=== PATIENT | female | born 1950 | race Caucasian/White ===

== ENCOUNTER 2022-03-25 13:25 | Outpatient (CLI) | payer MEDICARE, SELFPAY ==
--- OUTSIDE RECORDS SUMMARY | 2022-03-25 13:27 | XMS_ITS | Clinical Summary ---
:1950 Author Organization [facility] [place] [address] Care Team Providers Name Role Phone Nelli Kerns MD Primary Care Provider [phone] Allergies Active Allergy Reactions Severity Noted Date Comments Yfdklzadz-Bekpxumcmew-Ffnlwis Vomiting 10/12/2007 Penicillins Rash 10/12/2007 Medications Medication Sig Dispensed Refills Start Date End Date Status ACTIVELLA 1 MG-0.5 Once daily 0 10/12/2007 Active MG TAB IBUPROFEN 200 MG 4 tabs as needed 0 10/12/2007 Active TAB every 4-6 hours BONIVA 150 MG take 1 tablet (150 0 10/12/2007 Active TABIndications: mg) by oral route Osteoporosis, once a month on the unspecified same date; Take with a full glass of water and remain in an upright position for at least 60 minutes. oxyCODONE-acetamino Take 1-2 tablets by 80 tablet 0 03/13/2011 Active phen, 5-325 mg, mouth every 4 hours (PERCOCET 5-325) if needed for Pain. 5-325 mg per tablet Max acetaminophen dose: 4000mg in 24 hrs. hydrOXYzine pamoate Take 1 capsule by 45 capsule 0 03/13/2011 Active (VISTARIL) 25 mg mouth. Take 1 tablet capsule with Percocet WalkerIndications: Walker with 1 Device 0 09/23/2020 Active Closed fracture of wheels,seat,hand ramus of right brakes,and basket pubis, initial for home use. encounter (HC) oxyCODONE-acetamino Take 0.5-1 tablets 10 tablet 0 09/23/2020 Active phen, 5-325 mg, by mouth every 6 (PERCOCET) 5-325 mg hours if needed for per Pain Max tabletIndications: acetaminophen dose: Closed fracture of 4000mg in 24 hrs. 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 Complication internal fixation device such as nail, pl ate, or christian, distal 03/13/2011 radius and ulna Osteoporosis, unspecified 08/23/2007 Overview: DXA scan: lowest T-score -2.6 lumbar spi ne Social History Tobacco Use Types Packs/Day Years Used Date Never Smoker Alcohol Use Standard Drinks/Week Comments Yes 0 (1 standard drink = 0.6 oz pure alcoho l) wine occasionally Sex Assigned at Date Recorded Not on file Obstetrics History Para Term AB IAB SAB Ectopic Multiple Living Live Births 2 2 2 Date Outcome GA Total Labor/2nd/3rd Weight Sex Delivery Anes PTL Kate A 1 A5 Name Clin Labor Para F Para M Last Filed Vital Signs Vital Sign Reading Time Taken Comments Blood Pressure 108/75 09/23/2020 3:12 PM MAJOR LEAGUE [employer]ASEBALL PLAYER Pulse 67 09/23/2020 3:12 PM MAJOR LEAG[employer] PLAYER Temperature 36.8 ??C (98.2 ??F) 09/23/2020 3:12 PM MAJOR LEAGUE B[employer] PLAYER Respiratory Rate 18 09/23/2020 3:12 PM MAJOR LEAGUE B[employer]BALL PLAYER Oxygen Saturation 100% 09/23/2020 3:12 PM MAJOR LEAGUE B[employer] PLAYER Inhaled Oxygen Concentration - - Weight 51.5 kg (113 lb 8 oz) 09/23/2020 3:12 PM MAJOR LEAGUE [employer]BALL PLAYER Height 162.6 cm (5' 4) 09/23/2020 3:12 PM MAJOR LEAGUE B[employer]BALL PLAYER Body Mass Index 19.48 09/23/2020 3:12 PM MAJOR LEAGUE B[employer]BALL PLAYER Plan of Treatment Health Maintenance Due Date Last Done Comments COVID-19 vaccine series (#1) 05/22/1951 Tdap 11/20/1962 Depression screening for age 12+ 1963 BMI (ht and wt on same day) for age 18+ 11/20/1969 Hepatitis C screening for age 18-79 11/20/1969 Tetanus booster 1971 Colonoscopy through age 75 11/20/1996 Lipids for age 45-75 11/20/1996 Zoster (shingles) series for age 50+ (1 of 2) 11/20/2001 Mammogram for age 45-75 08/23/2008 08/23/2007 DEXA/DXA scan for age 65+ 11/20/2016 08/23/2007 Pneumococcal series for age 65+ (1 - PCV) 11/20/2016 Influenza for age 65+ 03/26/2022 Medical Devices Implanted Type Area Sole Assessor Device Shelf Model / Identifier Expiration Serial / Date Lot Screw Locking 2.3x10mm Titnm - [id number] Left: [employer] [id number]# / Implanted: Qty: 1 on 03/13/2011 at [facility] / Explanted Type Area Sole Assessor Device Shelf Model / Identifier Expiration Serial / Date Lot K-Wire W/17mm Stop - [id number] Left: [place] [id number]# / Explanted: Qty: 1 on 03/13/2011 at [facility] / Results Not on filefrom Last 3 Months Insurance Payer Benefit Plan / Subscriber ID Effective Dates Phone Addre ss Type Group [facility] MR [id number] 2020-Present [address] [address] [place] [address] Advance Directives Latest Code Status on File Code Status Date Activated Date Inactivated Comments Full Code 03/13/2011 6:56 AM 03/13/2011 6:15 PM Care Teams Clinical Psychology Teacher Relationship Specialty Start Date End Date Nelli Kerns, PCP - General Family Practice 02/23 09/05
[2022-03-25 17:28] LABS: Albumin* 4.7 g/dL (3.3-5.0); Chloride* 103 mmol/L (96-114); Sodium* 139 mmol/L (135-149)
[2022-03-25 17:29] LABS: Potassium* 4.6 mmol/L (3.6-5.1)
[2022-03-25 17:30] LABS: Cholesterol* 262 mg/dL (90-199)
[2022-03-25 17:31] LABS: Alkaline Phosphatase* 70 U/L (40-150); Aspartate Amino Transferase* 27 U/L (12-35); Bilirubin Total* 0.8 mg/dL (0.1-1.5); Blood Urea Nitrogen* 23 mg/dL (7-30); Carbon Dioxide* 25 mmol/L (20-32); Creatinine* 0.8 mg/dL (0.5-1.5); Estimated Glomerular Filt Rate 79 ml/min; Glucose* 107 mg/dL (60-115); Total Protein* 8.1 g/dL (6.0-8.3)
[2022-03-25 17:32] LABS: Alanine Aminotransferase* 15 U/L (4-35); Calcium* 9.8 mg/dL (8.4-10.6); HDL Cholesterol* 76 mg/dL (>=50); LDL Cholesterol Calculated 167 mg/dL (<100); Triglycerides* 93 mg/dL (40-149)
[2022-03-25 17:48] LABS: Vitamin D 25 Hydroxy* 94 ng/mL (30-80)
== END 2022-03-25 13:26 | disposition home or self-care (01) ==
PROVIDERS: PCP Family Medicine; Visit Provider Family Medicine
DX: Z00.00 Encounter for general adult medical examination without abnormal findings (principal); M81.0 Age-related osteoporosis without current pathological fracture; E78.5 Hyperlipidemia, unspecified
CPT/HCPCS: 80053; 80061; 82306

== ENCOUNTER 2022-05-13 07:32 | Outpatient (CLI) | payer MEDICARE, SELFPAY ==
--- OUTSIDE RECORDS SUMMARY | 2022-05-13 07:34 | XMS_ITS | Clinical Summary ---
:1950 Author Organization [facility] [place] [address] Care Team Providers Name Role Phone Nelli Kerns MD Primary Care Provider [phone] Allergies Active Allergy Reactions Severity Noted Date Comments Bdjzgkkwl-Ymqfzjeikqf-Mnccjaa Vomiting 10/12/2007 Penicillins Rash 10/12/2007 Medications Medication [...] Comments Blood Pressure 108/75 09/23/2020 3:12 PM DIRECTOR PART Pulse 67 09/23/2020 3:12 PM DIRECTOR PART Temperature 36.8 ??C (98.2 ??F) 09/23/2020 3:12 PM DIRECTOR PART Respiratory Rate 18 09/23/2020 3:12 PM DIRECTOR PART Oxygen Saturation 100% 09/23/2020 3:12 PM DIRECTOR PART Inhaled Oxygen Concentration - - Weight 51.5 kg (113 lb 8 oz) 09/23/2020 3:12 PM DIRECTOR PART Height 162.6 cm (5' 4) 09/23/2020 3:12 PM DIRECTOR PART Body Mass Index 19.48 09/23/2020 3:12 PM DIRECTOR PART Plan of Treatment Health Maintenance Due Date [...] 65+ 03/26/2022 Medical Devices Implanted Type Area Blind Eyeletter Device Shelf Model / Identifier Expiration Serial / Date Lot Screw Locking 2.3x10mm Titnm - [id number] Left: [employer] [id number]# / Implanted: Qty: 1 on 03/13/2011 at [facility] / Explanted Type Area Blind Eyeletter Device Shelf Model / Identifier Expiration Serial / Date Lot K-Wire W/17mm Stop - [id number] Left: [place] [id number]# / Explanted: Qty: 1 on 03/13/2011 at [facility] / Results Not on filefrom Last 3 Months Insurance Payer Benefit Plan / Subscriber ID Effective Dates Phone Addre ss Type Group [facility] MR [id number] 2020-Present [address] [address] [place] [address] Advance Directives Latest Code Status on File Code Status Date Activated Date Inactivated Comments Full Code 03/13/2011 6:56 AM 03/13/2011 6:15 PM Care Teams Grain Roaster Relationship Specialty Start Date End Date Nelli Kerns, PCP - General Family Practice 02/23 09/05
--- NOTE | 2022-05-13 07:45 | CRLHL7_ITS ---
For Patients: As a result of the Century Cures Act, medical imaging exams and procedure reports are released immediately into your electronic medical record. You may view this report before your referring provider. If you have questions, please contact your health care provider. BILATERAL SCREENING MAMMOGRAM WITH COMPUTER-AIDED DETECTION AND TOMOSYNTHESIS TECHNIQUE: CC and MLO views were obtained. These mammographic images have been obtained using full-field digital technique. These mammographic images were interpreted with the benefit of computer-aided detection. Breast tomosynthesis was used in this interpretation. COMPARISON FILM: 03/06/21, 02/22/18. FINDINGS: The breasts are heterogeneously dense, which may obscure small masses. IMPRESSION: There is no radiographic evidence for malignancy. ASSESSMENT: BI-RADS Category 1: Negative RECOMMENDATION: Routine screening mammogram in 1 year. A lay language report of this examination will be provided to the patient. GODWIN MCDONOUGH M.D. Diagnostic Radiologist [email or web address] Transcribed: 3:[address]/Dictated by: Godwin Mcdonough MD @ 05/13/2022 9:13:00 AM (Electronically Signed)
== END 2022-05-13 07:33 | disposition home or self-care (01) ==
PROVIDERS: PCP Family Medicine; Visit Provider Family Medicine
DX: Z12.31 Encounter for screening mammogram for malignant neoplasm of breast (principal); R92.2 Inconclusive mammogram
CPT/HCPCS: 77063; 77067

== ENCOUNTER 2023-01-07 10:25 | Outpatient (CLI) | payer MEDICARE, SELFPAY | END 2023-01-07 10:26 | disposition home or self-care (01) | PROVIDERS: PCP Family Medicine; Visit Provider Family Medicine | DX: R53.83 Other fatigue (principal) | CPT/HCPCS: 80048; 82550; 84443; 85025; 85651 ==

== ENCOUNTER 2023-06-04 09:56 | Outpatient (CLI) | payer MEDICARE, SELFPAY | END 2023-06-04 09:57 | disposition home or self-care (01) | LOC: NFLDREF 06-05 12:45 | PROVIDERS: PCP Family Medicine; Referring Provider Family Medicine; Visit Provider Family Medicine | DX: Z01.419 Encounter for gynecological examination (general) (routine) without abnormal findings (principal); E78.5 Hyperlipidemia, unspecified; M81.0 Age-related osteoporosis without current pathological fracture | CPT/HCPCS: 80061; 82306 ==

== ENCOUNTER 2023-07-29 13:17 | Outpatient (CLI) | payer MEDICARE, SELFPAY ==
--- NOTE | 2023-07-29 13:30 | CRLHL7_ITS ---
For Patients: As a result of the Century Cures Act, medical imaging exams and procedure reports are released immediately into your electronic medical record. You may view this report before your referring provider. If you have questions, please contact your health care provider. DXA BONE MINERAL DENSITY STUDY Reason for exam: Osteoporosis. History of fracture in pelvis area. Current height (in): 64. Weight (lb): 106. Menopause age: 53. Ethnicity: White. 1. Have you had a previous hip or vertebral fracture? Yes. 2. Have you had any fractures during your adult life which did not result from significant trauma (e.g., auto accident)? Yes. 3. Did either of your parents have a hip fracture? No. 4. Do you smoke? No. 5. Have you ever taken Glucocorticoids? No. 6. Do you have rheumatoid arthritis? No. 7. Do you have secondary osteoporosis? No. 8. Do you drink 3 or more alcoholic drinks per day? No. 9. Are you being treated for osteoporosis? Yes. 10. Have you ever taken any of the following medications: Actonel, Evista, Fosamax, Miacalcin, Reclast, Boniva, Forteo, HRT (i.e., estrogen/hormone therapy), Protelos, Prolia, Vitamin D, Calcium, other ??? please specify. ANSWER: Yes, Fosamax (i.e. alendronate), vitamin D, Boniva (i.e. ibandronate), and calcium. 11. Do you have any of the following medical conditions: Anorexia or bulimia, asthma or emphysema, end stage renal disease, hyperparathyroidism, any seizure disorders, cancer, inflammatory bowel diseases, hysterectomy, other ??? please specify. ANSWER: No. 12. What was your maximum height (inches)? 64. 13. Do you perform weight bearing exercise regularly? No. 14. Do you regularly consume dairy products? No. 15. Do you drink caffeinated beverages? Yes. If female: 16. At what age did your period start? 18. 17. Are you premenopausal? No. 18. How many full-term pregnancies have you had? 2. 19. Have you ever missed your period for more than 6 months in a row (not including or menopause)? No. TECHNIQUE: Bone mineral density study was performed using the [employer]. FINDINGS: The results of the study expressed as bone mineral density (BMD) are as follows: Lumbar spine L1 to L4: BMD: 0.690 g/cm2. T-score: -3.2. Z-score: -1.0 Neck Left: BMD: 0.529 g/cm2. T-score: -2.9. Z-score: -1.0 Right: BMD: 0.536 g/cm2. T-score: -2.8. Z-score: -0.9 Total Left: BMD: 0.789 g/cm2. T-score: -1.3. Z-score: 0.3 Right: BMD: 0.801 g/cm2. T-score: -1.2. Z-score: 0.4 IMPRESSION: Osteoporosis. *Comparison exams done prior to 12/2019 were performed on different unit, [employer]. COMPARISON: Compared with scan of 03/06/2021, the bone mineral density has increased by 3.4 percent at the spine and increased by 4.7 percent at the hip. Godwin Schilling M.D. Diagnostic Radiologist [email or web address] TAN/[email or web address] briseno/Dictated by: Godwin Schilling MD @ 07/29/2023 3:07:00 PM (Electronically Signed)
== END 2023-07-29 13:18 | disposition home or self-care (01) ==
LOC: RAD 13:18
PROVIDERS: PCP Family Medicine; Visit Provider Family Medicine
DX: M81.0 Age-related osteoporosis without current pathological fracture (principal)
CPT/HCPCS: 77080

== ENCOUNTER 2023-09-20 11:11 | Outpatient (CLI) | payer MEDICARE, SELFPAY ==
--- NOTE | 2023-09-20 11:30 | MM_ITS ---
Patient: ANGELA LEON Facility:?[facility] Patient ID:?[id number] Site Patient ID:?[id number]. Site :?1950 Study:?XRay-Breast Bilateral 3D W/CAD-09/20/2023 11:36:38 AM Ordering Physician:Cecilia Final Report: BILATERAL SCREENING MAMMOGRAM WITH COMPUTER-AIDED DETECTION AND TOMOSYNTHESIS TECHNIQUE: CC and MLO views were obtained. These mammographic images have been obtained using full-field digital technique. These mammographic images were interpreted with the benefit of computer-aided detection. Breast Tomosynthesis was used in this interpretation. COMPARISON FILM: 05/13/22, 01/28/21, 02/22/18. FINDINGS: The breasts are heterogeneously dense, which may obscure small masses IMPRESSION: There is no radiographic evidence for malignancy. ASSESSMENT: BI-RADS Category 1: Negative RECOMMENDATION: Routine screening mammogram in 1 year. A lay language report of this examination will be provided to the patient. Godwin Schilling M.D. Diagnostic Radiologist [email or web address] TAN/tameka R/ Transcribed: 3:13 p.m. JOSE/Dictated by: Godwin Schilling MD @ 09/20/2023 12:59:00 PM Signed by:?Godwin Schilling MD @09/20/2023 3:42:02 PM (Electronic Signature)
== END 2023-09-20 11:12 | disposition home or self-care (01) ==
LOC: MAMMO 11:12
PROVIDERS: PCP Family Medicine; Visit Provider Family Medicine
DX: Z12.31 Encounter for screening mammogram for malignant neoplasm of breast (principal); R92.2 Inconclusive mammogram
CPT/HCPCS: 77063; 77067

== ENCOUNTER 2024-06-01 08:15 | Outpatient (CLI) | payer MEDICARE, SELFPAY ==
--- OUTSIDE RECORDS SUMMARY | 2024-06-05 11:52 | XMS_ITS | Clinical Summary ---
Author Organization [facility] Address [place], [place] [address] Care Team Providers Care Educational Institution President Name Role Phone Nelli Kerns MD Primary Care Provider Allergies Active Allergy Reactions Criticality Noted Date Comments Kounljadb-Umaefztrqok-Abrrgpn Vomiting 2007 Penicillins Rash 10/12/2007 Medications Medication Sig Dispensed Refills Start Date End Date Status ACTIVELLA 1 MG-0.5 MG TAB Once daily 0 10/12/2007 Active IBUPROFEN 200 MG TAB 4 tabs as needed every 4-6 hours 0 10/12/2007 Active BONIVA 150 MG TABIndications:Ost eoporosis, unspecified take 1 tablet (150 mg) by oral route once a month on the same date; Take with a full glass of water and remain in an upright position for at least 60 minutes. 0 10/12/2007 Active oxyCODONE-acetamin ophen, 5-325 mg, (PERCOCET 5-325) 5-325 mg per tablet Take 1-2 tablets by mouth every 4 hours if needed for Pain. Max acetaminophen dose: 4000mg in 24 hrs. 80 tablet 0 03/13/2011 Active hydrOXYzine pamoate (VISTARIL) 25 mg capsule Take 1 capsule by mouth. Take 1 tablet with Percocet 45 capsule 0 03/13/2011 Active WalkerIndications: Closed fracture of ramus of right pubis, initial encounter (HC) Walker with wheels,seat,hand brakes,and basket for home use. 1 Device 09/23/2020 Active oxyCODONE-acetamin ophen, 5-325 mg, (PERCOCET) 5-325 mg per tabletIndications: Closed fracture of ramus of right pubis, initial encounter (HC),Closed fracture of sacrum, unspecified portion of sacrum, initial encounter (HC) Take 0.5-1 tablets by mouth every 6 hours if needed for Pain Max acetaminophen dose: 4000mg in 24 hrs. 10 tablet 09/23/2020 Active Active Problems Problem Noted Date Diagnosed Date Non-union of fracture distal radius fracture Complication internal fixati on device such as nail, plate, or christian, distal radius and ulna 03/13/2011 Osteoporosis, unspecified 08/23/2007 Overview (09/15/2007): DXA scan: lowest T-score -2.6 lumbar spine Social History Tobacco Use Types Packs/Day Years Used Date Smoking Tobacco: Never Alcohol Use Standard Drinks/Week Comments Yes 0 (1 standard drink = 0.6 oz pur e alcohol) wine occasionally Sex and Gender Information Value Date Recorded Sex Assigned at Not on file Gender Identity Not on file Sexual Orientation Not on file Obstetrics History Para Term AB IAB SAB Ectopic Multiple Livin g Live Births 2 2 2 Date Outcome GA Total Labor Labor/2nd/3rd Weight Sex Type Anes PTL Kate A1 A5 Name Clin Para F Para M Last Filed Vital Signs Vital Sign Reading Time Taken Comments Blood Pressure 108/75 09/23/2020 3:12 PM CONTRACT LOADER Pulse 67 09/23/2020 3:12 PM CONTRACT LOADER Temperature 36.8 ??C (98.2 ??F) 09/23/2020 3:12 PM CS T Respiratory Rate 18 09/23/2020 3:12 PM CONTRACT LOADER Oxygen Saturation 100% 09/23/2020 3:12 PM CONTRACT LOADER Inhaled Oxygen Concentration - - Weight 51.5 kg (113 lb 8 oz) 09/23/2020 3:12 PM CONTRACT LOADER Height 162.6 cm (5' 4) 09/23/2020 3:12 PM CONTRACT LOADER Body Mass Index 19.48 09/23/2020 3:12 PM CONTRACT LOADER Plan of Treatment Health Maintenance Due Date Last Done Comments Tdap 11/20/1962 Depression screening for age 12+ 1963 BMI (ht and wt on same day) for age 18+ 11/20/1969 Hepatitis C screening for age 18-79 11/20/1969 Tetanus booster 1971 Colonoscopy through age 75 11/20/1996 Lipids for age 45-75 11/20/1996 Zoster (shingles) series for age 50+ (1 of 2) 11/21/19 02 Mammogram for age 45-75 08/23/2008 08/23/2007 DEXA/DXA scan for age 65+ 11/20/2016 08/23/2007 Pneumococcal series for age 65+ (1 of 1 - PCV) 017 COVID-19 vaccine series (2023- season) 4 Influenza for age 65+ 03/26/2024 Medical Devices Implanted Type Area Vendor Specialist Device Identifier Shelf Expiration Date Model / Serial / Lot [id number] Canclls Crushed 30cc [[id number]] Implanted:Qty: 1 on 03/13/2011 at [facility] Explanted:at [facility] (Quantity not on file) [employer] 08/13/2013 [id number] / [id number] / Screw Bone T7 2.7x20mm - [id number] Implanted:Qty: 1 on 03/13/2011 at [facility] Left: [employer] [id number]# / / Screw Locking T7 2.7x18mm - [id number] Implanted:Qty: 2 on 03/13/2011 at [facility] Left: Rad[employer] [id number] # / / Screw Locking T7 2.7x20mm - [id number] Implanted:Qty: 1 on 03/13/2011 at [facility] Left: [employer] [id number] # / / Screw Bone 2.7x10mm - [id number] Implanted:Qty: 1 on 03/13/2011 at [facility] Left: Radius [employer] [id number] # / / Screw Bone T7 2.7x12mm - [id number] Implanted:Qty: 2 on 03/13/2011 at [facility] Left: Radius [employer] [id number] # / / Screw Bone T7 2.7x14mm - [id number] Implanted:Qty: 1 on 03/13/2011 at [facility] Left: [facility] [id number] # / / Screw Locking 2.3x10mm Titnm - [id number] Implanted:Qty: 1 on 03/13/2011 at [facility] Left: [facility] [id number] # / / Screw Locking 2.3x12mm Titnm - [id number] Implanted:Qty: 1 on 03/13/2011 at [facility] Left: Radius [employer] [id number] # / / Plate Radial Smartlock Sht - [id number] Implanted:Qty: 1 on 03/13/2011 at [facility] Left: [employer] [id number]# / / Screw Bone 2.3x12mm Titnm - [id number] Implanted:Qty: 2 on 03/13/2011 at [facility] Left: [employer] [id number] # / / Bone Screw 2.3x14mm - [id number] Implanted:Qty: 1 on 03/13/2011 at [facility] [id number]# / RAD / Screw Locking 2.7x10mm Titnm - [id number] Implanted:Qty: 3 on 03/13/2011 at [facility] Left: [employer] [id number] # / / Plate Radial Column Sht - [id number] Implanted:Qty: 1 on 03/13/2011 at [facility] Left: [employer] [id number]# / / Screw Locking T7 2.7x14mm - [id number] Implanted:Qty: 1 on 03/13/2011 at [facility] Left: [employer] [id number] # / / Screw Bone T7 2.7x18mm - [id number] Implanted:Qty: 2 on 03/13/2011 at [facility] Left: Radius [employer] [id number] # / / Explanted Type Area Vendor Specialist Device Identifier Shelf Expiration Date Model / Serial / Lot K Wire .045in W/Markings - [id number] Explanted:Qty: 2 on 03/13/2011 at [facility] Left: [employer] [id number]# / / K-Wire W/17mm Stop - [id number] Explanted:Qty: 1 on 03/13/2011 at [facility] Left: [employer] [id number]# / / Procedures Procedure Name Priority Date/Time Associated Diagnosis Comments XR MAMMO SCREENING BILATERAL (IA) Routine 08/23/2007 6:39 PM CONTRACT LOADER Screening Mammogram Other XR DXA BONE DENSITY 2 SITES AXIAL Routine 08/23/2007 Screening Osteoporosis Screening Mammogram Other from Last 3 Months or Most Recently Relevant to Health Maintenance Results * XR MAMMO SCREENING BILATERAL (08/23/2007 6:39 PM CONTRACT LOADER) MAMMOGRAM ACR 3 Probably Benign Finding: Short interval F/U suggested Anatomical Region Laterality Modality BREASTS, Breast Left, Breast Right Bilateral Mammography 08/23/2007 6:39 PM CONTRACT LOADER Narrative 08/26/2007 1:04 PM CONTRACT LOADER BILATERAL MAMMOGRAMS CLINICAL HISTORY: ??Screening. COMPARISON: ??No prior mammograms currently available for comparison. ?? FINDINGS: ??The breasts are heterogeneously dense which may obscure small masses. ??There is a benign-appearing 5.0 mm nodule in the axillary aspect of the right breast with a fatty hilum suggesting an intramammary lymph node. ??No areas of architectural distortion or suspicious calcifications are seen. ?? CONCLUSION: ??ACR 3 Probably Benign Findings: Short interval F/U suggested. RECOMMENDATIONS: ??Unilateral right mammogram in six months. ??If prior mammograms become available for comparison, then an addendum to this report can be dictated. ?? Procedure Note Sergio Dallas DO - 08/26/2007 BILATERAL MAMMOGRAMS CLINICAL HISTORY: Screening. COMPARISON: No prior mammograms currently available for comparison. FINDINGS: The breasts are heterogeneously dense which may obscure smallmasses. There is a benign-appearing 5.0 mm nodule in the axillary aspectof the right breast with a fatty hilum suggesting an intramammary lymphnode. No areas of architectural distortion or suspicious calcificationsare seen. CONCLUSION: ACR 3 Probably Benign Findings: Short interval F/Usuggested. RECOMMENDATIONS: Unilateral right mammogram in six months. If priormammograms become available for comparison, then an addendum to thisreport can be dictated. Aron Gifford MD MAMMO * XR DXA BONE DENSITY 2 SITES (08/23/2007) Anatomical Region Laterality Modality Spine, HIPS, HIPL, HIPR Bone Den sitometry Aron Gifford MD DEXA from Last 3 Months or Most Recently Relevant to Health Maintenance Advance Directives * Full Code (Latest Code Status on File) Date Activated Date Inactivated Comments 03/13/2011 6:56 AM 03/13/2011 6:15 PM Care Teams Educational Institution President Relationship Specialty Start Date End Date Nelli Kerns MD PCP - General Family Practice 03/06/11
== END 2024-06-01 08:16 | disposition home or self-care (01) ==
LOC: NFLDREF 06-05 11:50
PROVIDERS: PCP Family Medicine; Referring Provider Family Medicine; Visit Provider Family Medicine
DX: E78.5 Hyperlipidemia, unspecified (principal)
CPT/HCPCS: 80053; 80061

== ENCOUNTER 2024-10-26 13:46 | Outpatient (CLI) | payer MEDICARE, SELFPAY ==
--- NOTE | 2024-10-26 14:00 | CRLHL7_ITS ---
For Patients: As a result of the Century Cures Act, medical imaging exams and procedure reports are released immediately into your electronic medical record. You may view this report before your referring provider. If you have questions, please contact your health care provider. BILATERAL SCREENING MAMMOGRAM WITH COMPUTER-AIDED DETECTION AND TOMOSYNTHESIS TECHNIQUE: CC and MLO views were obtained. These mammographic images have been obtained using full-field digital technique. These mammographic images were interpreted with the benefit of computer-aided detection. Breast Tomosynthesis was used in this interpretation. COMPARISON FILM: 09/20/23, 05/13/22, 01/28/21. FINDINGS: The breasts are heterogeneously dense, which may obscure small masses. IMPRESSION: There is no radiographic evidence for malignancy. ASSESSMENT: BI-RADS Category 1: Negative RECOMMENDATION: Routine screening mammogram in 1 year. A lay language report of this examination will be provided to the patient. Godwin Schilling M.D. Diagnostic Radiologist [email or web address] SP/Dictated by: Godwin Schilling MD @ 10/27/2024 12:55:00 PM (Electronically Signed)
== END 2024-10-26 13:47 | disposition home or self-care (01) ==
LOC: MAMMO 13:49
PROVIDERS: PCP Family Medicine; Visit Provider Family Medicine
DX: Z12.31 Encounter for screening mammogram for malignant neoplasm of breast (principal); R92.333 Mammographic heterogeneous density, bilateral breasts
CPT/HCPCS: 77063; 77067